=== PATIENT | female | born 1980 | race Caucasian/White ===

== ENCOUNTER → 2020-09-25 | Outpatient (CLI) | payer OTHER | LOC: RAD 15:38 | DX: M79.672 Pain in left foot (principal); M79.605 Pain in left leg; M79.89 Other specified soft tissue disorders | CPT/HCPCS: 73590; 73630 ==

== ENCOUNTER 2021-11-09 14:47 | Emergency (ER) | payer OTHER ==
[2021-11-09 15:22] LABS: HEMOGLOBIN 14.7 gm/dl (12.3-15.3); RED BLOOD COUNT 4.64 M/UL (4.00-5.10); WHITE BLOOD COUNT 7.8 K/UL (4.5-11.0)
[2021-11-09 15:48] LABS: BUN/CREATININE RATIO 9 (0-10)
[2021-11-09] MEDS ORDERED: IBUPROFEN800 MG PO (19:28)
== END 2021-11-09 19:46 | disposition home or self-care (01) ==
LOC: ER1 14:47
PROVIDERS: Emergency Medicine
DX: R07.89 Other chest pain (principal); I10 Essential (primary) hypertension
CPT/HCPCS: 71045; 80053; 82550; 82553; 84484; 85025; 86140; 93005; 96374; 99285; J1885